=== PATIENT | female | born 1995 | race Two or more races ===

== ENCOUNTER 2023-08-10 20:42 | Emergency (ER) | payer OTHER ==
[~2023-08-10] VITALS: Ht 170.2 cm; Wt 65.8 kg
[2023-08-10] MEDS ORDERED: ACETAMINOPHEN ES 500 MG TABLET ONE (21:36)
[2023-08-10] MEDS ORDERED: ACETAMINOPHEN ES 500 MG TABLET PO ONE (22:00)
[2023-08-10 22:41] LABS: APPEARANCE,URINE SLIGHTLY CLOUDY (CLEAR); BILIRUBIN,URINE NEGATIVE (NEGATIVE); BLOOD, URINE TRACE Ery/uL (NEGATIVE); COLOR,URINE YELLOW (YELLOW); KETONES,URINE NEGATIVE (NEGATIVE); LEUKOCYTE ESTERASE ,URINE NEGATIVE (NEGATIVE); NITRITE, URINE NEGATIVE (NEGATIVE); PROTEIN,URINE NEGATIVE (NEGATIVE); UGLUCOSE NEGATIVE (NEGATIVE); UROBILINOGEN,URINE 0.2 EU/dL (0.2)
[2023-08-10 22:44] LABS: PREGNANCY TEST URINE QUAL NEGATIVE (NEGATIVE)
[2023-08-10] MEDS ORDERED: IBUP-1955 PO (23:02)
[2023-08-10] MEDS ORDERED: ACET-2605 PO (23:02)
[2023-08-10 23:14] LABS: ADD URINE CULTURE NO; BACTERIA,URINE None seen /HPF (None Seen); WBC,URINE 0-2 /HPF (0-3)
[2023-08-10 23:19] VITALS: BP 121/74; TEMP 97.9; O2SAT 99
== END 2023-08-10 23:19 | disposition home or self-care (01) ==
LOC: ER 20:54
DX: R10.32 Left lower quadrant pain (principal); Z87.42 Personal history of other diseases of the female genital tract
CPT/HCPCS: 76856-TC; 81001; 84703-TC